=== PATIENT | female | born 1975 | race Caucasian/White ===

== ENCOUNTER 2018-11-22 16:52 | Emergency (ER) | payer SELFPAY ==
[~2018-11-22] VITALS: Ht 170.2 cm; Wt 90.7 kg
[2018-11-22 16:52] VITALS: BP_SYST 136
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
--- NOTE | 2018-11-22 16:59 | NUR ---
LESIA Schmidt at bedside examining patient.
--- NOTE | 2018-11-22 17:02 | NUR ---
Patient given written and verbal discharge instructions and verbalizes understanding. ER MD Schmidt discussed with patient the results and treatment provided. Patient in stable condition. ID arm band removed. No Rx given. Patient educated on pain management and to follow up with PMD. Pain Scale 0. Opportunity for questions provided and answered. Medication side effect fact sheet provided.
[2018-11-22 20:40] VITALS: BP_SYST 129
== END 2018-11-22 17:02 ==
LOC: SED 16:52
DX: T74.11XA Adult physical abuse, confirmed, initial encounter (principal); R22.0 Localized swelling, mass and lump, head; Y07.01 Husband, perpetrator of maltreatment and neglect
CPT/HCPCS: 99283